=== PATIENT | male | born 1980 ===

== ENCOUNTER 2016-12-06 02:34 | Emergency (ER) | payer SELFPAY ==
[2016-12-06 02:40] VITALS: O2SAT 94
[2016-12-06] MEDS ORDERED: IBUPROFEN 600 MG TAB PO ONE (02:49)
[2016-12-06] MEDS ORDERED: ACETAMINOPHEN 500 MG TAB PO ONE (02:49)
[2016-12-06] MEDS ORDERED: IBUPROFEN 200 MG TAB PO ONE (02:51)
--- NOTE | 2016-12-06 02:55 | EDPHY ---
H & P Stated Complaint: left earache, throat pain Time Seen by Provider: 12/06/16 02:49 HPI/ROS: Chief complaint: throat pain, ear ache HPI: Patient presenting complaining of worsening left ear pain and throat pain today. Began as an ache along his ear has been having increasingly discomfort in his throat. States that it hurts to swallow he is able swallow. Is not taking any medications. Denies any fevers or chills. No nausea or vomiting. No headache. Does not have a history of the same. Positive smoker. ROS: 10 point Review of Systems is negative except as noted in the HPI. Past medical history: None medications: None Allergies: No known drug allergies Social history: Positive for smoking, positive for alcohol, denies other drug use Physical exam: Gen: Awake, Alert, No Distress HEENT: Ears: Bilateral TMs are normal, no erythema or bulging. External auditory canals are clear. Nose: no rhinorrhea Eyes: PERRLA, EOMI Mouth: Moist mucosa due diffuse pharyngeal exudate and tonsillar exudate with erythema. Uvula is midline. There is no peritonsillar swelling. There is no submandibular mandibular swelling or masses. Neck: Supple, no JVD, mild cervical lymphadenopathy, no masses or fluctuance. Ext: no edema, non-tender Skin: no rash Neuro: CN II-XII intact, Sensation grossly intact, Strength 5/5 in bilateral upper and lower extremities - Medical/Surgical History Hx Asthma: No Hx Chronic Respiratory Disease: No Hx Diabetes: No Hx Cardiac Disease: No Hx Renal Disease: No Hx Cirrhosis: No Hx Alcoholism: No Hx HIV/AIDS: No Hx Splenectomy or Spleen Trauma: No - Social History Smoking Status: Heavy smoker Constitutional: Initial Vital Signs Temperature (C) 36.7 C 12/06/16 02:38 Heart Rate 83 12/06/16 02:38 Respiratory Rate 20 12/06/16 02:38 Blood Pressure 136/104 H 12/06/16 02:38 O2 Sat (%) 94 12/06/16 02:38 O2 Delivery Mode Room Air Allergies/Adverse Reactions: No Known Allergies Allergy (Unverified 12/06/16 02:38) Home Medications: Medication Instructions Recorded NK [No Known Home Meds] 12/06/16 Medical Decision Making ED Course/Re-evaluation: Rapid strep is negative. Will perform confirmatory test. If this is positive patient will be notified. - Data Points Laboratory Results: 12/06/16 12/06/16 Unknown 02:45 Group A Strep Screen NEGATIVE (NEGATIVE) Group A Strep DNA Pending Medications Given: Discontinued Medications Acetaminophen (Tylenol) 1,000 mg PO EDNOW ONE Stop: 12/06/16 02:50 Last Admin: 12/06/16 02:53 Dose: 1,000 mg Ibuprofen (Motrin) 800 mg PO EDNOW ONE Stop: 12/06/16 02:50 Last Admin: 12/06/16 02:53 Dose: 800 mg Departure - Departure Disposition: Home, Routine, Self-Care Clinical Impression: Acute pharyngitis Condition: Good Instructions: Pharyngitis (ED) Additional Instructions: Alternate ibuprofen and acetaminophen every 4 hours as needed for aches, pains, fevers, or chills. Return to the emergency depart for increasing pain, difficulty breathing, inability to swallow, or any other concerns. Referrals: NONE *PRIMARY CARE P,. [Primary Care Provider] - As per Instructions Elder Dunbar DO [Doctor of Osteopathy] - As per Instructions
[2016-12-06] MEDS ORDERED: DEXAMETHASONE 4 MG TAB PO ONE (04:02)
[2016-12-06] MEDS ORDERED: HYDROCOD/APAP 5/325 PREPACK#6 BTL TAKEHOME ONE (04:02)
[2016-12-06] MEDS ORDERED: DEXAMETHASONE 10 MG/ML VIAL ONE (04:04)
[2016-12-06 04:31] VITALS: BP 129/105; PULSE 90; RESP 16; TEMP 97.7
== END 2016-12-06 04:31 | disposition home or self-care (01) ==
DX: J02.9 Acute pharyngitis, unspecified (principal); F17.200 Nicotine dependence, unspecified, uncomplicated